=== PATIENT | female | born 1960 | race Caucasian/White ===

== ENCOUNTER → 2017-06-13 | Outpatient (CLI) | payer OTHER | LOC: M.RAD 11:00 | DX: Z12.31 Encounter for screening mammogram for malignant neoplasm of breast (principal) ==

== ENCOUNTER 2018-03-09 18:30 | Emergency (ER) | payer OTHER ==
[~2018-03-09] VITALS: Ht 162.6 cm; Wt 76.0 kg
[2018-03-09] MEDS ORDERED: AUGMENTIN 875-1 EACH PO (18:43)
[2018-03-09] MEDS ORDERED: FLONASE 0.05%50 MCG NASAL (18:43)
[2018-03-09] MEDS ORDERED: ANTIVERT25 MG PO (18:43)
[2018-03-09] MEDS ORDERED: ULTRAM 50MG TAB50 MG PO (19:43)
[2018-03-09 20:00] VITALS: BP 124/75
== END 2018-03-09 20:01 | disposition home or self-care (01) ==
LOC: M.ERS 18:30
DX: S82.432A Displaced oblique fracture of shaft of left fibula, initial encounter for closed fracture (principal); G43.909 Migraine, unspecified, not intractable, without status migrainosus; Z88.1 Allergy status to other antibiotic agents; W00.0XXA Fall on same level due to ice and snow, initial encounter; Y92.89 Other specified places as the place of occurrence of the external cause; Y93.89 Activity, other specified; Y99.8 Other external cause status

== ENCOUNTER → 2018-09-24 | Outpatient (CLI) | payer OTHER ==
[~2018-09-24] MED LIST: ANTIVERT25 MG PO; AUGMENTIN 875-1 EACH PO; FLONASE 0.05%50 MCG NASAL; ULTRAM 50MG TAB50 MG PO
== END ==
LOC: M.RAD 11:00
DX: Z12.31 Encounter for screening mammogram for malignant neoplasm of breast (principal)

== ENCOUNTER → 2019-10-11 | Outpatient (CLI) | payer OTHER | LOC: M.RAD 15:00 | PROVIDERS: ATTEND Obstetrics & Gynecology Gynecology | DX: Z12.31 Encounter for screening mammogram for malignant neoplasm of breast (principal) ==

== ENCOUNTER → 2020-10-11 | Outpatient (CLI) | payer OTHER | LOC: M.RAD 13:10 | PROVIDERS: ATTEND Obstetrics & Gynecology Gynecology | DX: Z12.31 Encounter for screening mammogram for malignant neoplasm of breast (principal) ==